=== PATIENT | female | born 1955 | race Caucasian/White ===

== ENCOUNTER 2020-11-23 22:49 | Emergency (ER) | payer MEDICARE, OTHER, SELFPAY ==
[2020-11-23 23:05] VITALS: BP 132/68; PULSE 74; PULSE 75; RESP 16; TEMP 36.4; O2SAT 96; BMI 28.3
--- NOTE | 2020-11-23 23:15 | PC.NURSE ---
MD notified of LOC/AMS, concern for CVA. MD at bedside for primary eval. Plan for labs, UA and CXR.
[2020-11-23 23:16] LABS: Glucose, Whole Blood 164 mg/dL (60-115)
[2020-11-23 23:34] VITALS: BP 132/68; PULSE 78; RESP 16; TEMP 36.5; O2SAT 100
--- NOTE | 2020-11-23 23:48 | ED_ITS ---
HPI - Altered Mental Status General Chief Complaint: Altered Mental Status Stated Complaint: AMS Time Seen by Provider: 11/23/20 23:06 Source: patient Mode of arrival: EMS History of Present Illness HPI narrative: This is a 65-year-old female with significant past medical history of COPD requiring oxygen night, CVA, AKA (left) brought in by EMS from [facility] with reported complaints that she received her medication at night and then when she was checked again at 10:00 p.m. staff reported that she was lethargic, difficult to arouse even with a sternal rub. Given the fact that patient has prior CVA history EMS was called. As per EMS patient was lethargic until an IV attempt when she ?suddenly came to and was alert and oriented x4 . On questioning, patient is reporting that she was ?tired? and had taken her oxycodone as well as Tylenol this evening. Otherwise, she denies fevers, chills, loss of appetite, GI symptoms, symptoms. Readily reports that her baseline deficits after her most recent stroke are LUE paralysis. Related Data Previous Rx's Medication Instructions Recorded ciprofloxacin HCl [Cipro] 500 mg PO Q12H 7 Days #14 tab 11/24/20 Allergies Allergy/AdvReac Type Severity Reaction Status Date / Time aspirin Allergy Unknown Verified 11/23/20 23:31 clindamycin Allergy Unknown Verified 11/23/20 23:31 diazepam [From Valium] Allergy Unknown Verified 11/23/20 23:31 gabapentin [From Neurontin] Allergy Unknown Verified 11/23/20 23:31 ibuprofen [From Motrin] Allergy Unknown Verified 11/23/20 23:31 Penicillins Allergy Unknown Verified 11/23/20 23:31 pregabalin [From Lyrica] Allergy Unknown Verified 11/23/20 23:31 Sulfa (Sulfonamide Allergy Unknown Verified 11/23/20 23:31 Antibiotics) Review of Systems Review of Systems: Pertinent positives and negatives as stated in HPI and 10 point review of systems is otherwise negative. [facility] [place] Past Medical History Source: nursing notes reviewed Medical History Amputation above knee Anemia Anxiety CHF (congestive heart failure) COPD (chronic obstructive pulmonary disease) Dementia Diabetes DVT (deep venous thrombosis) Pulmonary embolism Stroke Social History Social History Advance Directives: No Physical Exam Vital Signs: Vital Signs: Last Vital Signs Temp 97.7 F 11/23/20 23:34 Pulse 72 11/24/20 02:05 Resp 14 11/24/20 02:05 BP 132/68 11/23/20 23:34 Pulse Ox 100 11/23/20 23:34 Body Mass Index 28.3 VITAL SIGNS: Reviewed. GENERAL: Well developed, well nourished, in no acute distress. HEAD: Normocephalic/atraumatic, EYES: PERRLA, EOMI EARS: Ext canals without abnormality NOSE: Nares patent bilateral OROPHARYNX: no oral lesions noted, posterior pharynx clear NECK: Supple, no adenopathy LUNGS: Normal breath sounds. No adventitious sounds or accessory muscle use. SpO2<100> CARDIOVASCULAR: Regular rate and rhythm without noted murmurs ABDOMEN: Soft, non-tender, non-distended with bowel sounds. MUSCULOSKELETAL: No tenderness, LLE: AKA EXTREMITIES: No cyanosis, clubbing or edema. SKIN: Inspection of the skin reveals no rashes NEUROLOGIC: Alert and oriented x 4. RUE no pronator drift/sensation intact/hand radio interference investigator intact; LUE: Sensation intact/paralysis; LLE: AKA/sensation intact; RLE: Course Course Course Narrative: This is a 65-year-old female with history and clinical presentation most consistent with medication related effects, but will evaluate for infection, anemia, but no evidence to suggest CVA. Review of all investigations without acute findings other than urinalysis positive for UTI. Chest x-ray was reviewed and the mention findings humeral head placement consistent with position as patient does not have subluxation the humeral head. Patient is discharged in stable condition and will be given a script for entire course UTI treatment and needs re-evaluation by primary care provider. MDM - Altered Mental Status Lab Data Result diagrams: 11/24/20 00:55 11/24/20 00:55 Labs: Lab Results 11/23/20 11/24/20 11/24/20 Range/Units 23:11 00:55 00:55 WBC 6.1 (4.8-10.8) X10*3/uL RBC 4.74 (4.20-5.50) X10*6/uL Hgb 11.2 L (12.0-16.0) g/dl Hct 38.2 (37-47) % MCV 80.6 (80-98) fL MCH 23.6 L (27.0-33.0) pg MCHC 29.3 L (31.0-35.0) g/dl RDW 17.6 H (11.0-16.0) % Plt Count 265 (160-400) X10*3/uL MPV 9.1 L (9.4-12.3) fL Immature Gran % (Auto) 0.7 H (0.0-0.4) % Neut % (Auto) 47.3 (45-73) % Lymph % (Auto) 34.2 (20-40) % Sebastian % (Auto) 11.1 H (2-11) % Eos % (Auto) 6.0 H (0-4) % Baso % (Auto) 0.7 (0-2) % Lymph # (Auto) 2.1 (1.2-4.9) X10*3/uL Sebastian # (Auto) 0.7 (0.1-1.2) X10*3/uL Eos # (Auto) 0.4 (0.0-0.4) X10*3/uL Baso # (Auto) 0.0 (0.0-0.2) X10*3/uL Abs Immat Gran (auto) 0.04 H (0.00-0.03) X10*3/uL Absolute Neuts (auto) 2.9 (2.0-8.3) X10*3/uL Absolute Nucleated RBC 0.000 (0.0-0.012) X10*3/uL Nucleated RBC % (auto) 0.0 (0.0-0.2) /100WBC Sodium 140 (135-145) mmol/L Potassium 4.4 (3.3-5.1) mmol/L Chloride 105 (96-108) mmol/L Carbon Dioxide 25 (22-29) mmol/L Anion Gap 14 (12-20) BUN 30 H (9-16) mg/dL Creatinine 0.82 (0.5-1.4) mg/dL Estim Creat Clear Calc 61.1 Estimated GFR > 60 POC Glucose 164 H (60-115) mg/dL Random Glucose 134 H (60-115) mg/dL Calcium 8.8 (8.4-10.2) mg/dL Total Bilirubin 0.4 (0.0-1.0) mg/dL AST 14 (5-31) U/L ALT 16 (0-31) U/L Alkaline Phosphatase 130 H (39-117) U/L Total Protein 6.8 (6.5-8.0) g/dL Albumin 3.4 L (3.5-5.0) g/dL Urine Color Urine Appearance Urine pH (5.0-8.0) Ur Specific [place] (1.005-1.025) Urine Protein (NEG-TRACE) MG/DL Urine Glucose (UA) (NEG) MG/DL Urine Ketones (NEG) MG/DL Urine Blood (NEG) Urine Nitrite (NEG) Ur Leukocyte Esterase (NEG) Urine RBC (0) /HPF Urine WBC (0-4) /HPF Urine WBC Clumps Ur Squamous Epith Cells /LPF Urine Bacteria /LPF Urine Mucus /LPF 11/24/20 Range/Units 01:32 WBC (4.8-10.8) X10*3/uL RBC (4.20-5.50) X10*6/uL Hgb (12.0-16.0) g/dl Hct (37-47) % MCV (80-98) fL MCH (27.0-33.0) pg MCHC (31.0-35.0) g/dl RDW (11.0-16.0) % Plt Count (160-400) X10*3/uL MPV (9.4-12.3) fL Immature Gran % (Auto) (0.0-0.4) % Neut % (Auto) (45-73) % Lymph % (Auto) (20-40) % Sebastian % (Auto) (2-11) % Eos % (Auto) (0-4) % Baso % (Auto) (0-2) % Lymph # (Auto) (1.2-4.9) X10*3/uL Sebastian # (Auto) (0.1-1.2) X10*3/uL Eos # (Auto) (0.0-0.4) X10*3/uL Baso # (Auto) (0.0-0.2) X10*3/uL Abs Immat Gran (auto) (0.00-0.03) X10*3/uL Absolute Neuts (auto) (2.0-8.3) X10*3/uL Absolute Nucleated RBC (0.0-0.012) X10*3/uL Nucleated RBC % (auto) (0.0-0.2) /100WBC Sodium (135-145) mmol/L Potassium (3.3-5.1) mmol/L Chloride (96-108) mmol/L Carbon Dioxide (22-29) mmol/L Anion Gap (12-20) BUN (9-16) mg/dL Creatinine (0.5-1.4) mg/dL Estim Creat Clear Calc Estimated GFR POC Glucose (60-115) mg/dL Random Glucose (60-115) mg/dL Calcium (8.4-10.2) mg/dL Total Bilirubin (0.0-1.0) mg/dL AST (5-31) U/L ALT (0-31) U/L Alkaline Phosphatase (39-117) U/L Total Protein (6.5-8.0) g/dL Albumin (3.5-5.0) g/dL Urine Color YELLOW Urine Appearance HAZY Urine pH 6.5 (5.0-8.0) Ur Specific [place] 1.020 (1.005-1.025) Urine Protein NEG (NEG-TRACE) MG/DL Urine Glucose (UA) NEG (NEG) MG/DL Urine Ketones NEG (NEG) MG/DL Urine Blood TRACE (NEG) Urine Nitrite NEG (NEG) Ur Leukocyte Esterase 2+ H (NEG) Urine RBC 0-2 (0) /HPF Urine WBC 76-150 H (0-4) /HPF Urine WBC Clumps NOTED Ur Squamous Epith Cells TRACE /LPF Urine Bacteria NONE /LPF Urine Mucus TRACE /LPF Discharge Plan Discharge Clinical Impression: Acute UTI Patient Disposition: Xfer SNF Instructions: Urinary Tract Infection in Older Adults (ED) Additional Instructions: Please resume all home medications. Return to the emergency department should you experience any acute worsening of symptoms. Prescriptions: New ciprofloxacin HCl [Cipro] 500 mg tablet 500 mg PO Q12H 7 Days Qty: 14 RF: 0 Referrals: Gavin Dawn MD [Primary Care Provider] - 2 days (Re-evaluation for UTI and evaluated here in the emergency department for altered mental status without acute findings other than UTI.)
--- NOTE | 2020-11-23 23:48 | XR_ITS ---
EXAMINATION: XR CHEST CLINICAL INFORMATION: Cough COMPARISON: None TECHNIQUE: Frontal view of the chest was obtained. FINDINGS: Lung volumes are symmetric. There is linear opacity in the mid to basilar left lung favoring atelectasis. No additional consolidation is seen. No evidence of pneumothorax or significant pleural effusion. Cardiac silhouette appears near the upper limits of normal in size. Loop recorder overlies the lower left chest. Calcification is present at the aortic arch. Humeral heads appear positioned slightly inferior to the glenoid bilaterally, which could be due to patient positioning versus subluxation. XR/XR chest 1V IMPRESSION: 1. Subsegmental atelectasis in the mid to basilar left lung. 2. Humeral heads appear position slightly inferior to the glenoid bilaterally, which could be due to patient positioning versus subluxation; clinical correlation recommended.
--- NOTE | 2020-11-24 00:04 | PC.NURSE ---
Son calling inquiring about pt condition and treatment. Son to be called with updates [phone].
--- NOTE | 2020-11-24 00:11 | PC.NURSE ---
CXR at bedside.
--- NOTE | 2020-11-24 01:00 | PC.NURSE ---
Labs obtained and sent by this RN. Per pt, she is incontinent at baseline with no urge to urinate. Awaiting MD to order a straight cath to obtain UA. Pt resting in bed, continue to monitor.
[2020-11-24 01:01] LABS: Basophils Percent Auto 0.7 % (0-2); Eosinophils Absolute Auto 0.4 X10*3/uL (0.0-0.4); Hematocrit 38.2 % (37-47); Hemoglobin 11.2 g/dl (12.0-16.0); Imm Gran Abs Auto 0.04 X10*3/uL (0.00-0.03); Imm Gran Pct Auto 0.7 % (0.0-0.4); Lymphocytes Absolute Auto 2.1 X10*3/uL (1.2-4.9); Lymphocytes Percent Auto 34.2 % (20-40); MANUAL DIFF FLAG NO; Mean Corpuscular HGB Conc 29.3 g/dl (31.0-35.0); Mean Corpuscular Hemoglobin 23.6 pg (27.0-33.0); Mean Corpuscular Volume 80.6 fL (80-98); Mean Platelet Volume 9.1 fL (9.4-12.3); Monocytes Absolute Auto 0.7 X10*3/uL (0.1-1.2); Monocytes Percent Auto 11.1 % (2-11); Neutrophils Absolute Auto 2.9 X10*3/uL (2.0-8.3); Neutrophils Percent Auto 47.3 % (45-73); Platelet Count 265 X10*3/uL (160-400); Red Blood Count 4.74 X10*6/uL (4.20-5.50); Red Cell Distribution Width 17.6 % (11.0-16.0); White Blood Count 6.1 X10*3/uL (4.8-10.8)
[2020-11-24 01:28] LABS: Alanine Aminotransferase 16 U/L (0-31); Albumin Level 3.4 g/dL (3.5-5.0); Alkaline Phosphatase 130 U/L (39-117); Anion Gap 14 (12-20); Aspartate Amino Transferase 14 U/L (5-31); Bilirubin Total 0.4 mg/dL (0.0-1.0); Blood Urea Nitrogen 30 mg/dL (9-16); Calcium 8.8 mg/dL (8.4-10.2); Carbon Dioxide 25 mmol/L (22-29); Chloride 105 mmol/L (96-108); Creatinine Clr Calc Pharmacy 61.1; Estimated Glomerular Filt Rate > 60; Glucose Random 134 mg/dL (60-115); Potassium 4.4 mmol/L (3.3-5.1); Sodium 140 mmol/L (135-145); Total Protein 6.8 g/dL (6.5-8.0)
--- NOTE | 2020-11-24 01:37 | PC.NURSE ---
CONCEPCION Rush at bedside obtaining straight cath. UA obtained and sent. Pt resting in bed, provided with warm blankets, lights dim for comfort. Continue to monitor.
[2020-11-24 01:45] LABS: Glucose Urine UA NEG (NEG); Leukocyte Esterase Urine 2+ (NEG); Nitrite Urine NEG (NEG); PH 6.5 (5.0-8.0); UACC Culture Trigger YES; Urine Blood TRACE (NEG); Urine Ketones NEG (NEG); Urine Protein NEG (NEG-TRACE)
[2020-11-24 01:46] LABS: Appearance Urine HAZY; Color Urine YELLOW
[2020-11-24 02:04] LABS: Mucus Urine TRACE /LPF; RBC Urine 0-2 /HPF (0); Squamous Epithelial Cell Urine TRACE /LPF; WBC Clumps Urine NOTED
[2020-11-24 02:05] VITALS: PULSE 72; RESP 14
--- NOTE | 2020-11-24 02:13 | PC.NURSE ---
Plan to DC to [facility] via ambulance with PO ABX.
--- NOTE | 2020-11-24 03:15 | PC.NURSE ---
EMS at bedside. This RN calling nurse to nurse. This RN also notifying son of transfer back to [facility].
== END 2020-11-24 03:22 | disposition skilled nursing facility (03) ==
PROVIDERS: Emergency Provider Student in an Organized Health Care Education/Training Program; PCP Internal Medicine
DX: N39.0 Urinary tract infection, site not specified (principal); Z89.619 Acquired absence of unspecified leg above knee; I50.9 Heart failure, unspecified; J44.9 Chronic obstructive pulmonary disease, unspecified; F03.90 Unspecified dementia, unspecified severity, without behavioral disturbance, psychotic disturbance, mood disturbance, and anxiety; E11.9 Type 2 diabetes mellitus without complications; Z86.718 Personal history of other venous thrombosis and embolism; Z86.711 Personal history of pulmonary embolism; Z86.73 Personal history of transient ischemic attack (TIA), and cerebral infarction without residual deficits
CPT/HCPCS: 36415; 71045; 80053; 81001; 81003; 82947; 85025; 87086; 87088; 87186; 99284

== ENCOUNTER 2020-12-07 16:53 | Emergency (ER) | payer MEDICARE, OTHER, SELFPAY ==
--- NOTE | ~2020-12-07 | XR_ITS ---
EXAMINATION: XR CHEST CLINICAL INFORMATION: Episode of unresponsiveness. COMPARISON: None TECHNIQUE: Frontal view of the chest was obtained. FINDINGS: Mild chronic interstitial prominence without focal airspace consolidation. No pleural effusion or pneumothorax. Unremarkable cardiomediastinal silhouette. No acute osseous abnormality. XR/XR chest 1V IMPRESSION: No acute cardiopulmonary findings.
--- NOTE | ~2020-12-07 | CT_ITS ---
EXAMINATION: CT HEAD WITHOUT CONTRAST CLINICAL INFORMATION: Altered mental status. COMPARISON: None TECHNIQUE: Contiguous axial imaging was performed from the skull base to vertex without intravenous administration of contrast. This CT examination was performed using dose optimization techniques as appropriate, variously including the following: *Automated exposure control *Adjustment of mA and/or kV according to patient size (this includes techniques or standardized protocols for targeted exams where dose is matched to indication/reason for exam; i.e. extremities or head) *Use of iterative reconstruction technique DLP: 678 mGy-cm FINDINGS: There is no evidence of acute intracranial hemorrhage or territorial infarction. No abnormal mass effect or midline shift is seen. There is loss of call-white differentiation within the right basal ganglia/right cerebral pedicle extending to the right frontoparietal lobe with associated encephalomalacia and prominence of the right lateral ventricle. Findings are consistent with a remote infarct. Call to white matter differentiation is otherwise well preserved. No extra-axial fluid collections are identified. Mild prominence of the sulci, which can be seen in the setting of chronic microvascular ischemic disease. The osseous structures and soft tissues are normal. The mastoid air cells and visualized portions of the paranasal sinuses are well aerated. CT/CT head/brain wo con IMPRESSION: No acute intracranial hemorrhage or mass effect. Encephalomalacia within the right brainstem, right basal ganglia, and right frontoparietal lobe with loss of call-white differentiation, consistent with a remote infarct.
[2020-12-07 17:15] VITALS: BP 127/97; BP 155/70; PULSE 58; PULSE 68; RESP 14; TEMP 37.2; O2SAT 94; O2SAT 97; BMI 28.3
--- NOTE | 2020-12-07 17:35 | ECG_ITS ---
Test Reason : FOUND UNRESPONSIVE Blood Pressure : / mmHG Vent. Rate : 060 BPM Atrial Rate : 267 BPM P-R Int : 000 ms QRS Dur : 088 ms QT Int : 446 ms P-R-T Axes : 000 081 024 degrees QTc Int : 446 ms Possible Unusual P axis, possible ectopic atrial rhythm Abnormal ECG No previous ECGs available Referred By: Paula Senior Electronically Signed By:MOHIT HOWARD MD
--- NOTE | 2020-12-07 17:35 | ED.AMS ---
HPI - Altered Mental Status General Chief Complaint: Altered Mental Status Stated Complaint: FOUND UNRESPONSIVE, NOW RESPONSIVE Source: patient, EMS and RN notes reviewed Mode of arrival: EMS Limitations: no limitations History of Present Illness HPI narrative: 65-year-old female with significant past medical history of COPD requiring oxygen night, CVA, left AKA, dysphagia following CVA, insulin-dependent type 2 diabetes, adjustment disorder, left-sided hemiplegia with hemiparesis, cognitive communication deficit, hyperlipidemia vascular dementia without behavioral disturbance hypertension history of DVT, brought in by EMS from [facility] with reported altered mental status and unresponsiveness. This is her 2nd presentation for similar circumstances, last ER visit on 11/23/2020. Patient is now alert oriented x4, able to follow directions, and states to have no complaints at this time. Otherwise, she denies fevers, chills, loss of appetite, GI symptoms, symptoms. Readily reports that her baseline deficits after her most recent stroke are LUE paralysis. MD complaint: decreased responsiveness Onset (ago): hour(s) (Within the hour of arrival) Timing confirmed by: caregiver Severity: similar to previous episodes Associated symptoms: denies other symptoms Related Data Previous Rx's Medication Instructions Recorded ciprofloxacin HCl [Cipro] 500 mg PO Q12H 7 Days #14 tab 11/24/20 Allergies Allergy/AdvReac Type Severity Reaction Status Date / Time aspirin Allergy Unknown Verified 11/23/20 23:31 clindamycin Allergy Unknown Verified 11/23/20 23:31 diazepam [From Valium] Allergy Unknown Verified 11/23/20 23:31 gabapentin [From Neurontin] Allergy Unknown Verified 11/23/20 23:31 ibuprofen [From Motrin] Allergy Unknown Verified 11/23/20 23:31 Penicillins Allergy Unknown Verified 11/23/20 23:31 pregabalin [From Lyrica] Allergy Unknown Verified 11/23/20 23:31 Sulfa (Sulfonamide Allergy Unknown Verified 11/23/20 23:31 Antibiotics) Review of Systems Review of Systems: Constitutional: No Fever, No Chills ENT/Mouth: No Ear Pain, No Nasal Congestion, No sore throat Eyes: No Eye Pain, No Swelling, No Redness Cardiovascular: No Chest Pain, No SOB Respiratory: No Cough, No Sputum, No Dyspnea Gastrointestinal: No Nausea, No Vomiting, No Diarrhea, No Hematochezia, No Melena Genitourinary: No Dysuria, No Urinary Frequency, No Hematuria Musculoskeletal: Positive left AKA, No Myalgias Skin: No Skin Lesions, No rash Neuro: Positive left hemiparesis per baseline, No Weakness, No Numbness, No Paresthesias, No Dizziness, No Headache Psych: No Anxiety, no Depression, no SI/HI Heme/Lymph: No Lymphadenopathy Endocrine: No Polyuria, No Polydipsia Yes all other systems are reviewed and are negative PMFSH Past Medical History Attestation statement: The following information was validated with the patient. Source: old records reviewed Medical History (Reviewed 12/07/20 @ 21: by Paula Senior NP) Amputation above knee Anemia Anxiety CHF (congestive heart failure) COPD (chronic obstructive pulmonary disease) Dementia Diabetes DVT (deep venous thrombosis) Pulmonary embolism Stroke Social History Social History (Reviewed 12/07/20 @ : by Paula Senior NP) Alcohol intake: never Smoking Status: Never smoker Use of substances other than those prescribed or required for medical reasons: No Advance Directives: No Advance Directives Information Provided: No Physical Exam Vital Signs: Vital Signs: Last Vital Signs Temp 97.8 F 12/07/20 21:30 Pulse 66 12/07/20 21:30 Resp 15 12/07/20 21:30 BP 147/67 H 12/07/20 21:30 Pulse Ox 95 12/07/20 21:30 Body Mass Index 28.3 GENERAL: Well developed, well nourished, in no acute distress. HEENT: Normocephalic/atraumatic, PERRLA, EOMI, Bilateral tympanic membranes intact, Nares patent bilateral OROPHARYNX: no oral lesions noted, posterior pharynx clear NECK: Supple, no adenopathy, trachea midline LUNGS: Normal breath sounds. No adventitious sounds or accessory muscle use. CARDIOVASCULAR: Regular rate and rhythm without noted murmurs ABDOMEN: Soft, non-tender, non-distended with bowel sounds. MUSCULOSKELETAL: No tenderness, LLE: AKA EXTREMITIES: No cyanosis, clubbing or edema. SKIN: Inspection of the skin reveals no rashes NEUROLOGIC: Alert and oriented x 4. RUE no pronator drift/sensation intact/hand manager placement intact; LUE: Sensation intact paralysis per baseline; LLE: AKA/sensation intact; RLE: Sensation intact, no motor deficit NIH Stroke Scale Internal: Initial- Upon Arrival Level of Consciousness: Alert Level of Consciousness Questions: Answers both questions correctly Level of Consciousness Commands: Performs both tasks correctly Best Gaze: Normal Visual: No visual loss Facial Palsy: Normal Motor Arm (Right): No drift Motor Arm (Left): No movement Motor Leg (Right): No drift Motor Leg (Left): No movement Limb Ataxia: Absent Sensory: Normal Best Language: No aphasia Dysarthia: Normal Extinction and Inattention: No abnormality Score: 8 Course Course Course Narrative: 65-year-old female presents with an unresponsiveness. She was evaluated approximately 2 weeks ago for similar circumstances and was noted to have a UTI. NIH Stroke scale is 8, however she does have left-sided hemiparesis secondary to prior CVA, according to the scale there is no option for hemiparesis per baseline. CT scan of the head is negative for acute findings, does show encephalomalacia which is chronic. Labs are unremarkable, BUN elevated at 29, slightly higher than her baseline, we resuscitated with 1 L of fluid. Patient does have diabetic kidney disease. COVID is negative. Discussion with nursing staff patient is at baseline at this time, no new neurological findings. Plan of care is to discharge back to half-way facility. Discussion with Maria Teresa JAVIER at 9:38 p.m.. MDM - Altered Mental Status Differential Diagnosis Differential diagnosis: Likely altered mental status, delirium, dementia, encephalopathy, overdose polysubstance, renal failure and sepsis Medical Records Attestation: I reviewed the patient's medical records. Lab Data Attestation: I reviewed the patient's lab results. Result diagrams: 12/07/20 18:46 12/07/20 18:46 Labs: Lab Results 12/07/20 12/07/20 12/07/20 Range/Units 18:46 18:46 18:46 WBC 5.5 (4.8-10.8) X10*3/uL RBC 5.00 (4.20-5.50) X10*6/uL Hgb 12.0 (12.0-16.0) g/dl Hct 39.9 (37-47) % MCV 79.8 L (80-98) fL MCH 24.0 L (27.0-33.0) pg MCHC 30.1 L (31.0-35.0) g/dl RDW 18.6 H (11.0-16.0) % Plt Count 253 (160-400) X10*3/uL MPV 9.4 (9.4-12.3) fL Immature Gran % (Auto) 0.4 (0.0-0.4) % Neut % (Auto) 47.6 (45-73) % Lymph % (Auto) 35.0 (20-40) % [place] % (Auto) 10.5 (2-11) % Eos % (Auto) 5.8 H (0-4) % Baso % (Auto) 0.7 (0-2) % Lymph # (Auto) 1.9 (1.2-4.9) X10*3/uL [place] # (Auto) 0.6 (0.1-1.2) X10*3/uL Eos # (Auto) 0.3 (0.0-0.4) X10*3/uL Baso # (Auto) 0.0 (0.0-0.2) X10*3/uL Abs Immat Gran (auto) 0.02 (0.00-0.03) X10*3/uL Absolute Neuts (auto) 2.6 (2.0-8.3) X10*3/uL Absolute Nucleated RBC 0.000 (0.0-0.012) X10*3/uL Nucleated RBC % (auto) 0.0 (0.0-0.2) /100WBC PT 32.3 H (10.8-13.0) SEC INR 2.7 H (0.9-1.1) APTT 53.6 H (24.1-38.0) SEC Sodium 138 (135-145) mmol/L Potassium 4.5 (3.3-5.1) mmol/L Chloride 102 (96-108) mmol/L Carbon Dioxide 30 H (22-29) mmol/L Anion Gap 11 L (12-20) BUN 29 H (9-16) mg/dL Creatinine 0.75 (0.5-1.4) mg/dL Estim Creat Clear Calc 66.8 Estimated GFR > 60 Random Glucose 102 (60-115) mg/dL Calcium 8.8 (8.4-10.2) mg/dL Magnesium 2.2 (1.6-2.6) mg/dL Total Bilirubin 0.5 (0.0-1.0) mg/dL Direct Bilirubin < 0.2 (0.0-0.5) mg/dL AST 21 D (5-31) U/L ALT 29 (0-31) U/L Alkaline Phosphatase 129 H (39-117) U/L Troponin I High Sens (<3.5-17.0) ng/L Total Protein 6.8 (6.5-8.0) g/dL Albumin 3.4 L (3.5-5.0) g/dL Lipase 31 (8-78) U/L Urine Color Urine Appearance Urine pH (5.0-8.0) Ur Specific [place] (1.005-1.025) Urine Protein (NEG-TRACE) MG/DL Urine Glucose (UA) (NEG) MG/DL Urine Ketones (NEG) MG/DL Urine Blood (NEG) Urine Nitrite (NEG) Ur Leukocyte Esterase (NEG) Ethyl Alcohol mg/dL Coronavirus (PCR) (Negative) Influenza Type A (PCR) (Negative) Influenza Type B (PCR) (Negative) RSV RNA Qual (PCR) (Negative) 12/07/20 12/07/20 12/07/20 Range/Units 18:46 18:46 18:46 WBC (4.8-10.8) X10*3/uL RBC (4.20-5.50) X10*6/uL Hgb (12.0-16.0) g/dl Hct (37-47) % MCV (80-98) fL MCH (27.0-33.0) pg MCHC (31.0-35.0) g/dl RDW (11.0-16.0) % Plt Count (160-400) X10*3/uL MPV (9.4-12.3) fL Immature Gran % (Auto) (0.0-0.4) % Neut % (Auto) (45-73) % Lymph % (Auto) (20-40) % [place] % (Auto) (2-11) % Eos % (Auto) (0-4) % Baso % (Auto) (0-2) % Lymph # (Auto) (1.2-4.9) X10*3/uL [place] # (Auto) (0.1-1.2) X10*3/uL Eos # (Auto) (0.0-0.4) X10*3/uL Baso # (Auto) (0.0-0.2) X10*3/uL Abs Immat Gran (auto) (0.00-0.03) X10*3/uL Absolute Neuts (auto) (2.0-8.3) X10*3/uL Absolute Nucleated RBC (0.0-0.012) X10*3/uL Nucleated RBC % (auto) (0.0-0.2) /100WBC PT (10.8-13.0) SEC INR (0.9-1.1) APTT (24.1-38.0) SEC Sodium (135-145) mmol/L Potassium (3.3-5.1) mmol/L Chloride (96-108) mmol/L Carbon Dioxide (22-29) mmol/L Anion Gap (12-20) BUN (9-16) mg/dL Creatinine (0.5-1.4) mg/dL Estim Creat Clear Calc Estimated GFR Random Glucose (60-115) mg/dL Calcium (8.4-10.2) mg/dL Magnesium (1.6-2.6) mg/dL Total Bilirubin (0.0-1.0) mg/dL Direct Bilirubin (0.0-0.5) mg/dL AST (5-31) U/L ALT (0-31) U/L Alkaline Phosphatase (39-117) U/L Troponin I High Sens < 3.5 (<3.5-17.0) ng/L Total Protein (6.5-8.0) g/dL Albumin (3.5-5.0) g/dL Lipase (8-78) U/L Urine Color Urine Appearance Urine pH (5.0-8.0) Ur Specific [place] (1.005-1.025) Urine Protein (NEG-TRACE) MG/DL Urine Glucose (UA) (NEG) MG/DL Urine Ketones (NEG) MG/DL Urine Blood (NEG) Urine Nitrite (NEG) Ur Leukocyte Esterase (NEG) Ethyl Alcohol < 10 mg/dL Coronavirus (PCR) NEGATIVE (Negative) Influenza Type A (PCR) NEGATIVE (Negative) Influenza Type B (PCR) NEGATIVE (Negative) RSV RNA Qual (PCR) NEGATIVE (Negative) 12/07/20 Range/Units 18:46 WBC (4.8-10.8) X10*3/uL RBC (4.20-5.50) X10*6/uL Hgb (12.0-16.0) g/dl Hct (37-47) % MCV (80-98) fL MCH (27.0-33.0) pg MCHC (31.0-35.0) g/dl RDW (11.0-16.0) % Plt Count (160-400) X10*3/uL MPV (9.4-12.3) fL Immature Gran % (Auto) (0.0-0.4) % Neut % (Auto) (45-73) % Lymph % (Auto) (20-40) % [place] % (Auto) (2-11) % Eos % (Auto) (0-4) % Baso % (Auto) (0-2) % Lymph # (Auto) (1.2-4.9) X10*3/uL [place] # (Auto) (0.1-1.2) X10*3/uL Eos # (Auto) (0.0-0.4) X10*3/uL Baso # (Auto) (0.0-0.2) X10*3/uL Abs Immat Gran (auto) (0.00-0.03) X10*3/uL Absolute Neuts (auto) (2.0-8.3) X10*3/uL Absolute Nucleated RBC (0.0-0.012) X10*3/uL Nucleated RBC % (auto) (0.0-0.2) /100WBC PT (10.8-13.0) SEC INR (0.9-1.1) APTT (24.1-38.0) SEC Sodium (135-145) mmol/L Potassium (3.3-5.1) mmol/L Chloride (96-108) mmol/L Carbon Dioxide (22-29) mmol/L Anion Gap (12-20) BUN (9-16) mg/dL Creatinine (0.5-1.4) mg/dL Estim Creat Clear Calc Estimated GFR Random Glucose (60-115) mg/dL Calcium (8.4-10.2) mg/dL Magnesium (1.6-2.6) mg/dL Total Bilirubin (0.0-1.0) mg/dL Direct Bilirubin (0.0-0.5) mg/dL AST (5-31) U/L ALT (0-31) U/L Alkaline Phosphatase (39-117) U/L Troponin I High Sens (<3.5-17.0) ng/L Total Protein (6.5-8.0) g/dL Albumin (3.5-5.0) g/dL Lipase (8-78) U/L Urine Color YELLOW Urine Appearance CLEAR Urine pH 6.5 (5.0-8.0) Ur Specific [place] 1.015 (1.005-1.025) Urine Protein NEG (NEG-TRACE) MG/DL Urine Glucose (UA) NEG (NEG) MG/DL Urine Ketones NEG (NEG) MG/DL Urine Blood NEG (NEG) Urine Nitrite NEG (NEG) Ur Leukocyte Esterase NEG (NEG) Ethyl Alcohol mg/dL Coronavirus (PCR) (Negative) Influenza Type A (PCR) (Negative) Influenza Type B (PCR) (Negative) RSV RNA Qual (PCR) (Negative) Imaging Data Chest x-ray: Attestation: I personally reviewed and interpreted this imaging study as follows: Radiologist's impression: EXAMINATION: XR CHEST CLINICAL INFORMATION: Episode of unresponsiveness. COMPARISON: None TECHNIQUE: Frontal view of the chest was obtained. FINDINGS: Mild chronic interstitial prominence without focal airspace consolidation. No pleural effusion or pneumothorax. Unremarkable cardiomediastinal silhouette. No acute osseous abnormality. XR/XR chest 1V IMPRESSION: No acute cardiopulmonary findings. CT scan - head: Attestation: I personally reviewed and interpreted this imaging study as follows: Radiologist's impression: EXAMINATION: CT HEAD WITHOUT CONTRAST CLINICAL INFORMATION: Altered mental status. COMPARISON: None TECHNIQUE: Contiguous axial imaging was performed from the skull base to vertex without intravenous administration of contrast. This CT examination was performed using dose optimization techniques as appropriate, variously including the following: *Automated exposure control *Adjustment of mA and/or kV according to patient size (this includes techniques or standardized protocols for targeted exams where dose is matched to indication/reason for exam; i.e. extremities or head) *Use of iterative reconstruction technique DLP: 678 mGy-cm FINDINGS: There is no evidence of acute intracranial hemorrhage or territorial infarction. No abnormal mass effect or midline shift is seen. There is loss of call-white differentiation within the right basal ganglia/right cerebral pedicle extending to the right frontoparietal lobe with associated encephalomalacia and prominence of the right lateral ventricle. Findings are consistent with a remote infarct. Call to white matter differentiation is otherwise well preserved. No extra-axial fluid collections are identified. Mild prominence of the sulci, which can be seen in the setting of chronic microvascular ischemic disease. The osseous structures and soft tissues are normal. The mastoid air cells and visualized portions of the paranasal sinuses are well aerated. CT/CT head/brain wo con IMPRESSION: No acute intracranial hemorrhage or mass effect. Encephalomalacia within the right brainstem, right basal ganglia, and right frontoparietal lobe with loss of call-white differentiation, consistent with a remote infarct. ECG Data ECG #1: Attestation: I personally reviewed and interpreted this ECG as follows: ECG interpretation date: 12/07/20 ECG interpretation time: 17:42 Interpretation: Vent. rate 60 BPM GA interval * ms QRS duration 88 ms QT/QTc 446/446 ms P-R-T axes * 81 24 Junctional rhythm Abnormal ECG No previous ECGs available Critical Care Time Critical Care Time Critical Care Time: Yes Total Critical Care Time: 65 Attestation: I have personally provided critical care time exclusive of time spent on separately billable procedures. Time includes review of laboratory data, radiology results, discussion with consultants, and monitoring for potential decompensation. Interventions were performed as documented. Discharge Plan Discharge Clinical Impression: Episode of unresponsiveness Patient Disposition: [facility] Transfer Details: [facility] Instructions: Normal Exam (ED) Additional Instructions: You were evaluated for an episode of unresponsiveness that resolved prior to your arrival to the emergency department. CT scan of the head is negative for acute findings but does show chronic changes encephalomalacia from prior CVA. COVID negative, chest CT negative, EKG normal sinus, troponins are negative. Tox screen is negative. Blood sugar was normal at 102. It is unknown why you have this episode of unresponsiveness, our thorough investigation does not reveal any new neurological or physical findings to explain this episode. Please follow-up with primary care provider. Continue take medications as directed. Thank you for choosing this emergency department for evaluation. Please follow-up with primary care physician as needed. Return to the emergency department for any new, concerning, or worsening symptoms. Prescriptions: No Action ciprofloxacin HCl [Cipro] 500 mg tablet 500 mg PO Q12H 7 Days Qty: 14 RF: 0 Interventions: ED Discharge Assessment Last Done: 12/07/20 23:16 Discharge Date/Time: 12/07/20 23:19
[2020-12-07 18:54] LABS: MANUAL DIFF FLAG NO
[2020-12-07 18:56] LABS: Appearance Urine CLEAR; Color Urine YELLOW; Glucose Urine UA NEG (NEG); Leukocyte Esterase Urine NEG (NEG); Nitrite Urine NEG (NEG); PH 6.5 (5.0-8.0); Specific Gravity - Urine 1.015 (1.005-1.025); Urine Blood NEG (NEG); Urine Ketones NEG (NEG); Urine Protein NEG (NEG-TRACE)
[2020-12-07 18:57] LABS: Basophils Percent Auto 0.7 % (0-2); Eosinophils Absolute Auto 0.3 X10*3/uL (0.0-0.4); Eosinophils Percent Auto 5.8 % (0-4); Hematocrit 39.9 % (37-47); Imm Gran Abs Auto 0.02 X10*3/uL (0.00-0.03); Imm Gran Pct Auto 0.4 % (0.0-0.4); Lymphocytes Absolute Auto 1.9 X10*3/uL (1.2-4.9); Mean Corpuscular HGB Conc 30.1 g/dl (31.0-35.0); Mean Corpuscular Volume 79.8 fL (80-98); Mean Platelet Volume 9.4 fL (9.4-12.3); Monocytes Absolute Auto 0.6 X10*3/uL (0.1-1.2); Monocytes Percent Auto 10.5 % (2-11); Neutrophils Absolute Auto 2.6 X10*3/uL (2.0-8.3); Neutrophils Percent Auto 47.6 % (45-73); Platelet Count 253 X10*3/uL (160-400); Red Cell Distribution Width 18.6 % (11.0-16.0); White Blood Count 5.5 X10*3/uL (4.8-10.8)
[2020-12-07 19:03] LABS: INTERNATIONAL NORM RATIO 2.7 (0.9-1.1); Prothrombin Time 32.3 SEC (10.8-13.0)
[2020-12-07 19:05] LABS: Partial Thromboplastin Time 53.6 SEC (24.1-38.0)
[2020-12-07 19:19] LABS: Ethanol < 10 mg/dL
[2020-12-07 19:21] LABS: Alanine Aminotransferase 29 U/L (0-31); Albumin Level 3.4 g/dL (3.5-5.0); Alkaline Phosphatase 129 U/L (39-117); Anion Gap 11 (12-20); Aspartate Amino Transferase 21 U/L (5-31); Bilirubin Direct < 0.2 mg/dL (0.0-0.5); Bilirubin Total 0.5 mg/dL (0.0-1.0); Blood Urea Nitrogen 29 mg/dL (9-16); Calcium 8.8 mg/dL (8.4-10.2); Carbon Dioxide 30 mmol/L (22-29); Chloride 102 mmol/L (96-108); Creatinine Clr Calc Pharmacy 66.8; Estimated Glomerular Filt Rate > 60; Glucose Random 102 mg/dL (60-115); Lipase 31 U/L (8-78); Magnesium 2.2 mg/dL (1.6-2.6); Potassium 4.5 mmol/L (3.3-5.1); Sodium 138 mmol/L (135-145); Total Protein 6.8 g/dL (6.5-8.0)
[2020-12-07 19:25] LABS: Troponin-I High Sensitivity < 3.5 ng/L (<3.5-17.0)
[2020-12-07 19:43] LABS: Influenza A PCR NEGATIVE (Negative); Influenza B PCR NEGATIVE (Negative); Resp Syncy Virus RNA Qual PCR NEGATIVE (Negative); SARS COV2 PCR INHOUSE NEGATIVE (Negative)
[2020-12-07] MEDS: 0.9 % Sodium Chloride 1,000 ML 999 ML IVCONT (19:52)
[2020-12-07 21:30] VITALS: BP 147/67; PULSE 66; RESP 15; TEMP 36.6; O2SAT 95
== END 2020-12-07 23:19 | disposition skilled nursing facility (03) ==
PROVIDERS: Nurse Practitioner Family; Emergency Provider Emergency Medicine; PCP Internal Medicine
DX: R40.4 Transient alteration of awareness (principal); Z20.822 Contact with and (suspected) exposure to COVID-19; I11.0 Hypertensive heart disease with heart failure; I50.9 Heart failure, unspecified; E11.9 Type 2 diabetes mellitus without complications; J44.9 Chronic obstructive pulmonary disease, unspecified; F01.50 Vascular dementia, unspecified severity, without behavioral disturbance, psychotic disturbance, mood disturbance, and anxiety; R41.841 Cognitive communication deficit; F43.20 Adjustment disorder, unspecified; Z86.718 Personal history of other venous thrombosis and embolism; Z86.711 Personal history of pulmonary embolism; Z86.73 Personal history of transient ischemic attack (TIA), and cerebral infarction without residual deficits; Z89.619 Acquired absence of unspecified leg above knee; Z99.81 Dependence on supplemental oxygen; Z79.4 Long term (current) use of insulin
CPT/HCPCS: 0241U; 36415; 70450; 71045; 80048; 80076; 80320; 81003; 83690; 83735; 84484; 85025; 85610; 85730; 93005; 96360; 99284; 99291